=== PATIENT | male | born 1995 | race Caucasian/White ===

== ENCOUNTER 2019-10-24 05:28 | Emergency (ER) | payer OTHER ==
[~2019-10-24] VITALS: Ht 193 cm; Wt 109.1 kg
[2019-10-24] MEDS ORDERED: AMOX875T PO (05:37)
[2019-10-24] MEDS ORDERED: PRED10PA PO (05:37)
[2019-10-24] MEDS ORDERED: PROTPAK PO (05:37)
[2019-10-24] MEDS ORDERED: GI COCKTAIL 50ML BTL(HYOSCYAMINE/MAALOX/LIDOCAINE VISCOUS)(1:3:1) PO ONE (06:15)
[2019-10-24 06:45] LABS: HEMATOCRIT 40.4 % (42.0-52.0); HEMOGLOBIN 13.2 g/dl (13.5-17.5); MEAN CORPUSCULAR HEMOGLOBIN 29.3 pg (27.0-33.0); MEAN CORPUSCULAR HGB CONC 32.7 g/dl (32.0-36.5); MEAN CORPUSCULAR VOLUME 89.6 fl (80.0-96.0); PLATELET COUNT, AUTOMATED 182 10^3/uL (150-450); RED BLOOD COUNT 4.51 10^6/uL (4.30-6.10); WHITE BLOOD COUNT 8.1 10^3/uL (4.0-10.0)
[2019-10-24] MEDS ORDERED: GASTROGRAFIN SOLUTION 30ML (Q9963) As Ordered ONE (06:47)
[2019-10-24] MEDS: GASTROGRAFIN SOLUTION 30ML PO SCH ×2 (06:58→07:41)
[2019-10-24 07:04] LABS: LYMPHOCYTES 28 % (16-44); MONOCYTES 9 % (0-5); NEUTROPHILS 63 % (28-66); PLATELET ESTIMATE NORMAL (NORMAL)
[2019-10-24 07:12] LABS: ALBUMIN 3.5 GM/DL (3.2-5.2); ALT/SGPT 22 U/L (12-78); BILIRUBIN,DIRECT 0.1 MG/DL (0.0-0.2); BILIRUBIN,TOTAL 0.3 MG/DL (0.2-1.0); BLOOD UREA NITROGEN 18 MG/DL (7-18); CALCIUM LEVEL 8.7 MG/DL (8.5-10.1); CARBON DIOXIDE LEVEL 28 MEQ/L (21-32); CHLORIDE LEVEL 107 MEQ/L (98-107); CREATININE FOR GFR 1.12 MG/DL (0.70-1.30); GLOMERULAR FILTRATION RATE > 60.0 (>60); GLUCOSE, FASTING 91 MG/DL (70-100); LIPASE 140 U/L (73-393); POTASSIUM SERUM 3.9 MEQ/L (3.5-5.1); SODIUM LEVEL 143 MEQ/L (136-145)
[2019-10-24] MEDS ORDERED: ISOVUE-370 76% 100ML VIAL (Q9967) As Ordered ONE (07:45)
[2019-10-24] MEDS ORDERED: MORPHINE 2 MG/ML 1ML VIAL (J2270) IV PRN (08:15)
--- NOTE | 2019-10-24 09:04 | REPVR ---
PROCEDURE INFORMATION: Exam: CT Angiography Abdomen and Pelvis With Contrast Exam date and time: 10/24/2019 7:57 AM Age: 24 years old Clinical indication: Condition or disease; Other: SMA syndrome; Additional info: Evaluate for SMA syndrome TECHNIQUE: Imaging protocol: Computed tomographic angiography of the abdomen and pelvis with intravenous contrast material. 3D rendering: MIP and/or 3D reconstructed images were created by the technologist. Radiation optimization: All CT scans at this facility use at least one of these dose optimization techniques: automated exposure control; mA and/or kV adjustment per patient size (includes targeted exams where dose is matched to clinical indication); or iterative reconstruction. Contrast material: Isovue 370; Contrast volume: 100 ml; Contrast route: IV; COMPARISON: No relevant prior studies available. FINDINGS: Aorta: No abdominal aortic aneurysm or dissection identified. Celiac trunk and mesenteric arteries: Patent SMA. Patent HARLEEN. Renal arteries: Bilateral single renal arteries, no stenosis. Right iliac arteries: No occlusion or significant stenosis. Left iliac arteries: No occlusion or significant stenosis. Liver: No mass. Gallbladder and bile ducts: Unremarkable. No calcified stones. No ductal dilation. Pancreas: Unremarkable. No mass. No ductal dilation. Spleen: Unremarkable. No splenomegaly. Adrenals: Unremarkable. No mass. Kidneys and ureters: Unremarkable. No solid mass. No hydronephrosis. Stomach and bowel: No obstruction; specifically no proximal duodenal dilatation. No mucosal thickening. Appendix: No evidence of appendicitis. Intraperitoneal space: Unremarkable. No free air. No significant fluid collection. Lymph nodes: Unremarkable. No enlarged lymph nodes. Bladder: The urinary bladder is decompressed and difficult to assess. Reproductive: Unremarkable as visualized. Bones/joints: Patent celiac axis and branches without stenosis. Soft tissues: Unremarkable. IMPRESSION: No acute abnormality identified. Electronically signed by: Jose Lowery On 10/24/2019 09:04:22 AM
[2019-10-24] MEDS ORDERED: MAGIC MOUTHWASH SUSPENSION BTL SS STA (09:30)
[2019-10-24] MEDS ORDERED: NS 1,000 ML IV ONE (09:30)
[2019-10-24] MEDS ORDERED: SUCRALFATE SUSP 1GM/10ML UD PO ONE (09:30)
[2019-10-24 10:09] LABS: C REACTIVE PROTEIN QUANTITATIV 2.57 MG/DL (0.00-0.30)
[2019-10-24 10:25] LABS: ERYTHROCYTE SEDIMENTATION RATE 30 mm/hr (0-15)
--- NOTE | 2019-10-24 10:25 | REP ---
Clinical: Dysphagia Technique: Axial noncontrast images from the thoracic inlet to the upper abdomen with coronal and sagittal re-formations. Findings: Bilateral lung bergeron are well-aerated and clear. No consolidation, effusion, or pneumothorax. Tracheobronchial tree is patent. No axillary, hilar, or mediastinal adenopathy. Mediastinum demonstrates normal thoracic aorta, pulmonary vasculature, and heart/pericardium. Surrounding musculoskeletal structures are intact. Impression: Normal noncontrast chest CT. Electronically Signed by Siddharth Kim MD 10/24/2019 10:17 A
[2019-10-24] MEDS ORDERED: PANTOPRAZOLE 40MG INJ (PROTONIX) (C9113) IV ONE (11:00)
[2019-10-24] MEDS ORDERED: SUCR1SS PO (13:29)
[2019-10-24] MEDS ORDERED: NEXI40GR PO (13:29)
[2019-10-24 13:47] VITALS: BP 144/80
== END 2019-10-24 13:49 | disposition home or self-care (01) ==
LOC: M ED 05:28
DX: K20.0 Eosinophilic esophagitis (principal); R10.13 Epigastric pain; J06.9 Acute upper respiratory infection, unspecified; K21.9 Gastro-esophageal reflux disease without esophagitis; Z79.899 Other long term (current) drug therapy; Z79.1 Long term (current) use of non-steroidal anti-inflammatories (NSAID); Z79.52 Long term (current) use of systemic steroids
CPT/HCPCS: 71250; 74174; 80048; 80076; 83605; 83690; 85025; 85652; 86140; 96361; 96374; 96375; 99284; C9113; J2270; Q9967

== ENCOUNTER → 2020-02-08 | Outpatient (CLI) | payer OTHER ==
[~2020-02-08] MED LIST: AMOX875T PO; NEXI40GR PO; PRED10PA PO; PROTPAK PO; SUCR1SS PO
--- NOTE | 2020-02-08 12:36 | REP ---
Clinical: Right upper quadrant pain. Technique: Real time alexander scale ultrasound examination using curved array transducer. Findings: Liver and pancreas are normal in contour, size, echogenicity without focal hepatic or pancreatic lesion identified. Gallbladder is normal and without gallstones, wall thickening, or pericholecystic fluid. No biliary ductal dilatation is appreciated and the common bile duct measures 4 mm diameter. Right kidney is normal in reniform shape without hydronephrosis and measures 11.5 x 4.9 x 6.5 cm. No ascites in the visualized right upper quadrant. Impression: Normal right upper quadrant ultrasound. Electronically Signed by Siddharth Kim MD 02/08/2020 07:21 A
== END ==
LOC: M RAD 06:52
PROVIDERS: ATTEND Internal Medicine Gastroenterology
DX: R10.11 Right upper quadrant pain (principal)

== ENCOUNTER → 2020-04-09 | Outpatient (CLI) | payer OTHER ==
[~2020-04-09] MED LIST changes: +LANS15CA PO
== END ==
LOC: M LABSMTC 11:21
PROVIDERS: ATTEND Anesthesiology
DX: Z01.818 Encounter for other preprocedural examination (principal); Z11.59 Encounter for screening for other viral diseases
CPT/HCPCS: C9803; U0003

== ENCOUNTER 2020-04-12 11:49 | Day surgery (SDC) | payer OTHER ==
[~2020-04-12] VITALS: Ht 193 cm; Wt 112.0 kg
[~2020-04-12 11:49] MED LIST changes: +NS 1,000 ML IV ONE
[2020-04-12] MEDS ORDERED: propofoL 200 MG/20 ML VIAL As Ordered ONE (13:08)
[2020-04-12] MEDS ORDERED: LIDOCAINE 2% 100MG/5ML SDV (FOR ANES.) As Ordered ONE (13:08)
[2020-04-12] MEDS ORDERED: CETACAINE SPRAY 5GM As Ordered ONE (13:30)
--- NOTE | 2020-04-12 13:52 | ROOR ---
Patient Name: Emir Alvarado Procedure Date: 04/12/2020 1:24 PM Date of : 1995 Age: 24 Room: [facility] Gender: Male Note Status: Finalized Procedure: Upper GI endoscopy Indications: Epigastric abdominal pain, Follow-up of eosinophilic esophagitis Providers: Simba Salazar MD Referring MD: MEÑO SU DO Requesting Provider: Medicines: Monitored Anesthesia Care Complications: No immediate complications. Procedure: Pre-Anesthesia Assessment: - Prior to the procedure, a History and Physical was performed, and patient medications and allergies were reviewed. The patient is competent. The risks and benefits of the procedure and the sedation options and risks were discussed with the patient. All questions were answered and informed consent was obtained. Patient identification and proposed procedure were verified by the physician, the nurse and the anesthesiologist in the procedure room. Mental Status Examination: alert and oriented. Airway Examination: normal oropharyngeal airway and neck mobility. Respiratory Examination: clear to auscultation. CV Examination: normal. Prophylactic Antibiotics: The patient does not require prophylactic antibiotics. Prior Anticoagulants: The patient has taken no previous anticoagulant or antiplatelet agents. ASA Grade Assessment: II - A patient with mild systemic disease. After reviewing the risks and benefits, the patient was deemed in satisfactory condition to undergo the procedure. The anesthesia plan was to use monitored anesthesia care (MAC). Immediately prior to administration of medications, the patient was re-assessed for adequacy to receive sedatives. The heart rate, respiratory rate, oxygen saturations, blood pressure, adequacy of pulmonary ventilation, and response to care were monitored throughout the procedure. The physical status of the patient was re-assessed after the procedure. The Endoscope was introduced through the mouth, and advanced to the second part of duodenum. The upper GI endoscopy was accomplished without difficulty. The patient tolerated the procedure well. Findings: Mucosal changes including feline appearance, longitudinal furrows and white plaques were found in the middle third of the esophagus and in the lower third of the esophagus. Biopsies were obtained from the proximal and distal esophagus with cold forceps for histology of suspected eosinophilic esophagitis. Verification of patient identification for the specimen was done by the physician and nurse using the patient's name, date and medical record number. Estimated blood loss was minimal. Scattered mild inflammation characterized by erythema and granularity was found in the gastric antrum. Biopsies were taken with a cold forceps for Helicobacter pylori testing. The duodenal bulb and second portion of the duodenum were normal. Biopsies for histology were taken with a cold forceps for evaluation of celiac disease. Impression: - Esophageal mucosal changes consistent with eosinophilic esophagitis. Biopsied. - Gastritis. Biopsied. - Normal duodenal bulb and second portion of the duodenum. Biopsied. Recommendation: - Patient has a contact number available for emergencies. The signs and symptoms of potential delayed complications were discussed with the patient. Return to normal activities tomorrow. Written discharge instructions were provided to the patient. - Resume previous diet. - Avoid the food allergens. Follow Six Food Elimination Diet ( Avoid -- milk, soy, eggs, wheat, peanuts/tree nuts, and seafood), until allergy testing is done. - Continue present medications. - Follow an antireflux regimen. - Await pathology results. - Telephone GI clinic for pathology results in 2 weeks. - Return to primary care physician. Simba Salazar MD Simba Salazar MD 04/12/2020 1:52:02 PM Electronically signed by Simba Salazar MD Number of Addenda: 0 Note Initiated On: 04/12/2020 1:24 PM Estimated Blood Loss: Estimated blood loss was minimal.
[2020-04-12 14:32] VITALS: BP 133/88
== END 2020-04-12 14:40 | disposition home or self-care (01) ==
LOC: M OPP 11:49
PROVIDERS: ATTEND Internal Medicine Gastroenterology
DX: K22.8 Other specified diseases of esophagus (principal); K29.70 Gastritis, unspecified, without bleeding; R10.13 Epigastric pain; K20.0 Eosinophilic esophagitis; Z79.899 Other long term (current) drug therapy